=== PATIENT | male | born 1975 | race Two or more races ===

== ENCOUNTER 2023-07-31 14:18 | Emergency (ER) | payer BC ==
[~2023-07-31] VITALS: Ht 185.4 cm; Wt 95.3 kg
[2023-07-31] MEDS ORDERED: KETOROLAC TROMETHAMINE 60 MG VIAL IM ONE (17:15)
[2023-07-31] MEDS ORDERED: CEFTRIAXONE SODIUM 1,000 MG VIAL IM ONE (17:15)
== END 2023-07-31 17:50 | disposition home or self-care (01) ==
LOC: ER 14:18
DX: H66.90 Otitis media, unspecified, unspecified ear (principal); J32.9 Chronic sinusitis, unspecified